=== PATIENT | male | born 1990 | race Caucasian/White ===

== ENCOUNTER 2022-11-18 06:27 | Emergency (ER) | payer OTHER ==
[~2022-11-18] VITALS: Ht 182.9 cm; Wt 72.0 kg
[2022-11-18 07:47] VITALS: BP 114/60; PULSE 80; RESP 16; TEMP 98.4
== END 2022-11-18 11:27 | disposition home or self-care (01) ==
LOC: EMS 06:27
DX: F41.9 Anxiety disorder, unspecified (principal); F43.10 Post-traumatic stress disorder, unspecified; F17.210 Nicotine dependence, cigarettes, uncomplicated; F15.90 Other stimulant use, unspecified, uncomplicated
CPT/HCPCS: 99281; Z7502